=== PATIENT | female | born 1935 ===

== ENCOUNTER → 2018-09-05 14:10 | Outpatient (REF) | payer MEDICARE, SELFPAY ==
[2018-09-05 14:53] LABS: INR 1.1 (0.9-1.3); Prothrombin Time 12.2 SECONDS (10.1-12.7)
== END ==
LOC: LAB 14:10
DX: I48.1 Persistent atrial fibrillation (principal); Z95.2 Presence of prosthetic heart valve
CPT/HCPCS: 85610

== ENCOUNTER → 2018-09-12 16:09 | Outpatient (REF) | payer MEDICARE, SELFPAY ==
[2018-09-12 16:22] LABS: INR 1.1 (0.9-1.3); Prothrombin Time 12.6 SECONDS (10.1-12.7)
== END ==
LOC: LAB 16:09
DX: I48.91 Unspecified atrial fibrillation (principal)
CPT/HCPCS: 85610

== ENCOUNTER → 2018-09-27 19:11 | Outpatient (REF) | payer MEDICARE, SELFPAY ==
[2018-09-27 19:36] LABS: INR 1.1 (0.9-1.3); Prothrombin Time 12.7 SECONDS (10.1-12.7)
== END ==
LOC: LAB 19:11
PROVIDERS: Visit Provider Internal Medicine
DX: I48.91 Unspecified atrial fibrillation (principal)
CPT/HCPCS: 85610

== ENCOUNTER → 2018-10-03 15:25 | Outpatient (REF) | payer MEDICARE, SELFPAY ==
[2018-10-03 15:50] LABS: INR 1.9 (0.9-1.3); Prothrombin Time 22.2 SECONDS (10.1-12.7)
== END ==
LOC: LAB 15:25
DX: I48.91 Unspecified atrial fibrillation (principal)
CPT/HCPCS: 85610